=== PATIENT | male | born 1965 | race Caucasian/White ===

== ENCOUNTER 2017-02-28 16:01 | Inpatient (IN) | payer OTHER ==
--- NOTE | 2017-02-28 17:25 | EDPHY ---
H & P Stated Complaint: in addisons crisis/fever - Personal History Current Tetanus/Diphtheria Vaccine: Yes - Medical/Surgical History Hx Asthma: No Hx Chronic Respiratory Disease: No Hx Diabetes: No Hx Cardiac Disease: No Hx Renal Disease: No Hx Cirrhosis: No Hx Alcoholism: No Hx HIV/AIDS: No Hx Splenectomy or Spleen Trauma: No Other PMH: Addisons disease. 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 Yesterday he woke feeling worse, felt like he was experiencing as soon in crisis with symptoms including headache, fever, chills, coughing, abdominal pain, feeling overall not well. He was seen by his PCP today, had fever 103 F, plan was direct admission by his PCP however there were complications associated with this and he subsequently went home, did not feel better in came to the ER. Yesterday he self administered 4 mg of IM Decadron and felt improvement at that time. He currently states that he is feeling somewhat improved. Patient had negative influenza swab in his primary care's office this morning. He denies: Dyspnea, nausea vomiting, melena hematochezia, dysuria. PRIMARY CARE PROVIDER: Dr. Lupillo Agee REVIEW OF SYSTEMS: A ten point review of systems was performed and is negative with the exception of the items mentioned in the HPI PAST MEDICAL & SURGICAL HISTORY: Roque's disease SOCIAL HISTORY:Nonsmoker PHYSICAL EXAM (Prior to examination, patient consented to physical exam, hands were washed and my usual and customary physical exam procedures followed) 1) GENERAL: Well-developed, well-nourished, alert and oriented. Appears anxious. 2) HEAD: Normocephalic, atraumatic 3) HEENT: Pupils equal, round, reactive to light bilaterally. Sclera anicteric. Nasopharynx, oropharynx, clear, no lesions. Moist mucous membrane Ears bilaterally with normal tympanic membranes. 4) NECK: Full range of motion, no meningeal signs. No cervical adenopathy 5) LUNGS: Clear auscultation bilaterally, no wheezes, no rhonchi, no retractions. 6) HEART: Regular rate and rhythm, no murmur, no heave, no gallop. 7) ABDOMEN: No guarding, no rebound, no focal tenderness, negative McBurney's, negative Ramirez's, negative Rovsing's, negative peritoneal sign, unable to elicit any abdominal pain on exam 8) MUSCULOSKELETAL: Moving all extremities, no focal areas of tenderness, no obvious trauma. No peripheral edema or discoloration. 9) BACK: No CVA tenderness, no midline vertebral tenderness, no fluctuance, no step-off, no obvious trauma, no visual or palpable abnormality. 10) SKIN: No rash, no petechiae. 11) Psychiatric: Patient is oriented X 3, there is no agitation. DIFFERENTIAL DIAGNOSIS: In no particular include but limited to pneumonia, influenza, addisonian crisis (Martha,Kristopher Jessenia) Constitutional: Initial Vital Signs Temperature (C) 36.8 C 02/28/17 16:06 Heart Rate 88 02/28/17 16:06 Respiratory Rate 16 02/28/17 16:06 Blood Pressure 114/61 02/28/17 16:06 O2 Sat (%) 97 02/28/17 16:06 O2 Delivery Mode Room Air Allergies/Adverse Reactions: No Known Allergies Allergy (Verified 02/28/17 21:13) Home Medications: Medication Instructions Recorded AZITHROMYCIN [Z-PACK] 250 mg PO DAILY 02/28/17 Aspirin [Aspirin 325 mg (*)] 975 mg PO ONCE 02/28/17 Bupropion HCl [Bupropion HCl Sr] 150 mg PO BID 02/28/17 Cholecalciferol Vit D3 [Vitamin D3 4,000 units PO DAILY 02/28/17 (*)] Dexamethasone Sod Phosphate 4 mbq IM ONCE 02/28/17 [Dexamethasone Sodium Phosphate] Diazepam [Diazepam] 2 mg PO DAILY PRN 02/28/17 Fludrocortisone Acetate [Florinef] 0.1 mg PO DAILY 02/28/17 Herbals/Supplements -Info Only 1 ea PO DAILY 02/28/17 Hydrocortisone [Cortef 10 mg (*)] 10 mg PO DAILY@1300 02/28/17 Hydrocortisone [Cortef 10 mg (*)] 20 mg PO DAILY 02/28/17 Synthroid 88 mcg (*) 88 mcg PO DAILY 02/28/17 Medical Decision Making - Diagnostics Imaging Results: Imaging Impressions Chest X-Ray 02/28/17 17:22 Impression: Probable left lower lobe pneumonia. Recommend following to clear. ED Course/Re-evaluation: Patient was re-evaluated with serial examinations. Remains normotensive, maintain normal saturations. He is noted to have a left lower lobe pneumonia. Discussed case with secondary supervising physician Dr. Singh Lopez. Plan will be admission to hospitalist service, consultation Dr. Anastasiya Frausto at 7: 00 p.m. who will admit patient. (Kristopher Thomas) I did not see this patient while he was in the emergency department. However his care was discussed with the PA while the patient was in the department. I agree with treatment plan and management (Singh Lopez S) - Data Points Laboratory Results: Laboratory Results 02/28/17 16:40 02/28/17 16:40 02/28/17 02/28/17 02/28/17 17:40 17:28 16:40 WBC RBC Hgb Hct MCV MCH MCHC RDW Plt Count MPV Neut % (Auto) Lymph % (Auto) [place] % (Auto) Eos % (Auto) Baso % (Auto) Nucleat RBC Rel Count Absolute Neuts (auto) Absolute Lymphs (auto) Absolute Monos (auto) Absolute Eos (auto) Absolute Basos (auto) Absolute Nucleated RBC Immature Gran % Immature Gran # PT INR APTT VBG Lactic Acid 0.9 mmol/L mmol/L (0.7-2.1) Sodium 136 mEq/L mEq/L (135-145) Potassium 4.3 mEq/L mEq/L (3.5-5.2) Chloride 102 mEq/L mEq/L (97-110) Carbon Dioxide 22 mEq/l mEq/l (22-31) Anion Gap 12 mEq/L mEq/L (8-16) BUN 13 mg/dL mg/dL (7-23) Creatinine 1.2 mg/dL mg/dL (0.7-1.3) Estimated GFR > 60 Glucose 133 mg/dL H mg/dL (70-100) Calcium 8.6 mg/dL mg/dL (8.5-10.4) Total Bilirubin 0.3 mg/dL mg/dL (0.1-1.4) Conjugated Bilirubin 0.2 mg/dL mg/dL (0.0-0.5) Unconjugated Bilirubin 0.1 mg/dL mg/dL (0.0-1.1) AST 54 IU/L IU/L (17-59) ALT 57 IU/L IU/L (21-72) Alkaline Phosphatase 62 IU/L IU/L (38-126) Total Protein 6.0 g/dL L g/dL (6.3-8.2) Albumin 3.4 g/dL L g/dL (3.5-5.0) Lipase 112 IU/L IU/L (23-300) TSH 0.554 uIU/mL uIU/mL (0.465-4.680) Urine Color PALE YELLOW Urine Appearance CLEAR Urine pH 7.0 (5.0-7.5) Ur Specific [place] 1.004 (1.002-1.030) Urine Protein NEGATIVE (NEGATIVE) Urine Ketones NEGATIVE (NEGATIVE) Urine Blood NEGATIVE (NEGATIVE) Urine Nitrate NEGATIVE (NEGATIVE) Urine Bilirubin NEGATIVE (NEGATIVE) Urine Urobilinogen 2.0 EU H EU (0.2-1.0) Ur Leukocyte Esterase NEGATIVE (NEGATIVE) Urine RBC NONE SEEN /hpf /hpf (0-3) Urine WBC 1-3 /hpf /hpf (0-3) Ur Epithelial Cells NONE SEEN /lpf /lpf (NONE-1+) Urine Glucose NEGATIVE (NEGATIVE) 02/28/17 02/28/17 16:40 16:40 WBC 20.96 10^3/uL H 10^3/uL (3.80-9.50) RBC 4.02 10^6/uL L 10^6/uL (4.40-6.38) Hgb 13.3 g/dL L g/dL (13.7-17.5) Hct 36.9 % L % (40.0-51.0) MCV 91.8 fL fL (81.5-99.8) MCH 33.1 pg pg (27.9-34.1) MCHC 36.0 g/dL g/dL (32.4-36.7) RDW 12.4 % % (11.5-15.2) Plt Count 190 10^3/uL 10^3/uL (150-400) MPV 10.3 fL fL (8.7-11.7) Neut % (Auto) 87.1 % H % (39.3-74.2) Lymph % (Auto) 4.0 % L % (15.0-45.0) [place] % (Auto) 7.9 % % (4.5-13.0) Eos % (Auto) 0.0 % L % (0.6-7.6) Baso % (Auto) 0.1 % L % (0.3-1.7) Nucleat RBC Rel Count 0.0 % % (0.0-0.2) Absolute Neuts (auto) 18.26 10^3/uL H 10^3/uL (1.70-6.50) Absolute Lymphs (auto) 0.83 10^3/uL L 10^3/uL (1.00-3.00) Absolute Monos (auto) 1.66 10^3/uL H 10^3/uL (0.30-0.80) Absolute Eos (auto) 0.00 10^3/uL L 10^3/uL (0.03-0.40) Absolute Basos (auto) 0.02 10^3/uL 10^3/uL (0.02-0.10) Absolute Nucleated RBC 0.00 10^3/uL 10^3/uL (0-0.01) Immature Gran % 0.9 % % (0.0-1.1) Immature Gran # 0.19 10^3/uL H 10^3/uL (0.00-0.10) PT 14.2 SEC SEC (12.0-15.0) INR 1.08 (0.83-1.16) APTT 32.0 SEC SEC (23.0-38.0) VBG Lactic Acid Sodium Potassium Chloride Carbon Dioxide Anion Gap BUN Creatinine Estimated GFR Glucose Calcium Total Bilirubin Conjugated Bilirubin Unconjugated Bilirubin AST ALT Alkaline Phosphatase Total Protein Albumin Lipase TSH Urine Color Urine Appearance Urine pH Ur Specific [place] Urine Protein Urine Ketones Urine Blood Urine Nitrate Urine Bilirubin Urine Urobilinogen Ur Leukocyte Esterase Urine RBC Urine WBC Ur Epithelial Cells Urine Glucose Medications Given: Discontinued Medications Ceftriaxone Sodium/Dextrose (Rocephin 1 Gm (Premix)) 50 mls @ 100 mls/hr IV DAILY MAUREEN PRN Reason: Protocol Stop: 03/30/17 18:59 Last Admin: 02/28/17 19:15 Dose: 50 mls Azithromycin 500 mg/ Dextrose 255 mls @ 255 mls/hr IV EDNOW ONE PRN Reason: Protocol Stop: 02/28/17 20:29 Last Admin: 02/28/17 21:10 Dose: 255 mls Departure - Departure Disposition: [facility] Inpatient Acute Clinical Impression: Pneumonia Qualifiers: Pneumonia type: due to unspecified organism Laterality: left Lung location: lower lobe of lung Qualified Code(s): J18.1 - Lobar pneumonia, unspecified organism Condition: Fair
[2017-02-28 17:39] LABS: PLATELET COUNT 190 10^3/uL (150-400)
[2017-02-28 17:48] LABS: INR 1.08 (0.83-1.16); PROTIME(PATIENT) 14.2 SEC (12.0-15.0)
[2017-02-28] MEDS ORDERED: AZITHROMYCIN IV 500 MG in D5W 250 ML IV SCH (19:00)
[2017-02-28] MEDS ORDERED: AZITHROMYCIN IV 500 MG in D5W 250 ML IV ONE (19:30)
[2017-02-28] MEDS ORDERED: diphenhydrAMINE 25 MG CAP PO PRN (22:41)
[2017-02-28] MEDS ORDERED: ACETAMINOPHEN 325 MG TAB PO PRN (22:41)
[2017-02-28] MEDS ORDERED: ONDANSETRON 4 MG/2 ML VIAL IVP PRN (22:41)
[2017-02-28] MEDS ORDERED: HYDROCODONE/APAP 5/325 TAB PO PRN (22:41)
--- NOTE | 2017-02-28 23:28 | PDGENHP ---
History and Physical - Chief Complaint "I'm in adrenal crisis" fevers, cough - History of Present Illness Source - upon arrival to patient's bedside patient is reported to be very frustrated, using multiple expletives and refusing to discuss current symptoms or past medical history until he receives an IV dose of steroids. Psych review with the patient His normal laboratory data including electrolytes, vital signs but he declined to have any further discussion. Data is limited to review of EMR and case discussed briefly with accepting provider at shift change. HPI - 51-year-old gentleman with a history of Roque's disease, hypothyroidism also on bupropion and diazepam who presents emergency department today with complaints of feeling generally unwell with fevers cough muscle aching abdominal pain. Patient reports that he is only here in the hospital because he reports he is in adrenal crises. Patient takes 20 mg of hydrocortisone, 10 mg of hydrocortisone at 1:00 p.m., Florinef 0.1 mg daily and self-administered 4 mg IM Decadron in the evening yesterday. Patient reported some improvement in his symptoms. He has not had any vital sign instability or electrolyte disturbances upon evaluation in the emergency department. Patient did not receive any steroids in the emergency department, and again reiterates the only reason he is in the hospital is for addisonian crisis. Per EMR, patient developed URI symptoms approximately a week ago he was given outpatient therapy with a Z-Louie which she completed. Patient began to feel significantly worse for presented back this PCPs office and was recommended for admission, but direct admission was not possible and patient went home from PCP office instead of ED. Also per EMR, patient was noted to have a fever at PCP office up to 103 F. Today patient reports feeling worse and presented to the emergency department for further evaluation. In the ED, patient was without any hypoxia. Blood pressures were within normal range and stable. Patient without any SIRS or sepsis criteria. He did have a leukocytosis of 20,000 however patient did take dexamethasone day prior to arrival in the ED. History Information - Allergies/Home Medication List Allergies/Adverse Reactions: No Known Allergies Allergy (Verified 02/28/17 21:13) Home Medications: AZITHROMYCIN [Z-PACK] 250 mg PO DAILY 02/28/17 [Last Taken 02/27/17] Aspirin [Aspirin 325 mg (*)] 975 mg PO ONCE 02/28/17 [Last Taken 02/28/17] Bupropion HCl [Bupropion HCl Sr] 150 mg PO BID 02/28/17 [Last Taken 02/28/17] Cholecalciferol Vit D3 [Vitamin D3 (*)] 4,000 units PO DAILY 02/28/17 [Last Taken Unknown] Dexamethasone Sod Phosphate [Dexamethasone Sodium Phosphate] 4 mbq IM ONCE 02/28 [Last Taken 02/28/17] Diazepam [Diazepam] 2 mg PO DAILY PRN 02/28/17 [Last Taken 02/23/17] Fludrocortisone Acetate [Florinef] 0.1 mg PO DAILY 02/28/17 [Last Taken 0.2MG] Herbals/Supplements -Info Only 1 ea PO DAILY 02/28/17 [Last Taken Unknown] Hydrocortisone [Cortef 10 mg (*)] 10 mg PO DAILY@1300 02/28/17 [Last Taken 02/28] Hydrocortisone [Cortef 10 mg (*)] 20 mg PO DAILY 02/28/17 [Last Taken 02/28/17 100MG TODAY] Synthroid 88 mcg (*) 88 mcg PO DAILY 02/28/17 [Last Taken 02/28/17] I have personally reviewed and updated: family history (Unable to review S patient declined), medical history (Limited review to EMR), social history ( Unable to review patient declined), surgical history (Unable to review patient declined) - Past Medical History Additional medical history: [place]'s disease, hypothyroidism - Social History Smoking Status: Former smoker Review of Systems Review of Systems: Limited review of systems to what patient would voluntarily share. He refused to have a full interview per discussion Fevers, muscle ache, abdominal pain, headache. Physical Exam Physical Exam: Limited exam as patient refused further interaction until he received IV steroids Temp Pulse Resp BP Pulse Ox 36.9 C 78 17 125/74 H 96 02/28/17 22:58 02/28/17 22:58 02/28/17 22:58 02/28/17 22:58 02/28/17 22:58 Constitutional: no apparent distress, other (Adult male sitting up in bed awake on his phone. Patient is frustrated and demanding steroids) Eyes: No icteric sclera, No scleral injection Ears, Nose, Mouth, Throat: other (No nasal discharge) Respiratory: no respiratory distress Skin: other (Bronzed skin tone) Musculoskeletal: other (Patient moves his upper extremities while sitting up in bed. His legs are carotid) Neurologic: other (Grossly nonfocal no facial drooping) Psychiatric: thought process linear, anxious, agitated (Patient demanding IV steroids, uses multiple expletives), No poor insight, No poor judgement, No poor memory Lab Data & Imaging Review 02/28/17 16:40 02/28/17 16:40 WBC 20.96 10^3/uL (3.80-9.50) H 02/28/17 16:40 RBC 4.02 10^6/uL (4.40-6.38) L 02/28/17 16:40 Hgb 13.3 g/dL (13.7-17.5) L 02/28/17 16:40 Hct 36.9 % (40.0-51.0) L 02/28/17 16:40 MCV 91.8 fL (81.5-99.8) 02/28/17 16:40 MCH 33.1 pg (27.9-34.1) 02/28/17 16:40 MCHC 36.0 g/dL (32.4-36.7) 02/28/17 16:40 RDW 12.4 % (11.5-15.2) 02/28/17 16:40 Plt Count 190 10^3/uL (150-400) 02/28/17 16:40 MPV 10.3 fL (8.7-11.7) 02/28/17 16:40 Neut % (Auto) 87.1 % (39.3-74.2) H 02/28/17 16:40 Lymph % (Auto) 4.0 % (15.0-45.0) L 02/28/17 16:40 [place] % (Auto) 7.9 % (4.5-13.0) 02/28/17 16:40 Eos % (Auto) 0.0 % (0.6-7.6) L 02/28/17 16:40 Baso % (Auto) 0.1 % (0.3-1.7) L 02/28/17 16:40 Nucleat RBC Rel Count 0.0 % (0.0-0.2) 02/28/17 16:40 Absolute Neuts (auto) 18.26 10^3/uL (1.70-6.50) H 02/28/17 16:40 Absolute Lymphs (auto) 0.83 10^3/uL (1.00-3.00) L 02/28/17 16:40 Absolute Monos (auto) 1.66 10^3/uL (0.30-0.80) H 02/28/17 16:40 Absolute Eos (auto) 0.00 10^3/uL (0.03-0.40) L 02/28/17 16:40 Absolute Basos (auto) 0.02 10^3/uL (0.02-0.10) 02/28/17 16:40 Absolute Nucleated RBC 0.00 10^3/uL (0-0.01) 02/28/17 16:40 Immature Gran % 0.9 % (0.0-1.1) 02/28/17 16:40 Immature Gran # 0.19 10^3/uL (0.00-0.10) H 02/28/17 16:40 PT 14.2 SEC (12.0-15.0) 02/28/17 16:40 INR 1.08 (0.83-1.16) 02/28/17 16:40 APTT 32.0 SEC (23.0-38.0) 02/28/17 16:40 VBG Lactic Acid 0.9 mmol/L (0.7-2.1) 02/28/17 17:40 Sodium 136 mEq/L (135-145) 02/28/17 16:40 Potassium 4.3 mEq/L (3.5-5.2) 02/28/17 16:40 Chloride 102 mEq/L (97-110) 02/28/17 16:40 Carbon Dioxide 22 mEq/l (22-31) 02/28/17 16:40 Anion Gap 12 mEq/L (8-16) 02/28/17 16:40 BUN 13 mg/dL (7-23) 02/28/17 16:40 Creatinine 1.2 mg/dL (0.7-1.3) 02/28/17 16:40 Estimated GFR > 60 02/28/17 16:40 Glucose 133 mg/dL (70-100) H 02/28/17 16:40 Calcium 8.6 mg/dL (8.5-10.4) 02/28/17 16:40 Total Bilirubin 0.3 mg/dL (0.1-1.4) 02/28/17 16:40 Conjugated Bilirubin 0.2 mg/dL (0.0-0.5) 02/28/17 16:40 Unconjugated Bilirubin 0.1 mg/dL (0.0-1.1) 02/28/17 16:40 AST 54 IU/L (17-59) 02/28/17 16:40 ALT 57 IU/L (21-72) 02/28/17 16:40 Alkaline Phosphatase 62 IU/L (38-126) 02/28/17 16:40 Total Protein 6.0 g/dL (6.3-8.2) L 02/28/17 16:40 Albumin 3.4 g/dL (3.5-5.0) L 02/28/17 16:40 Lipase 112 IU/L (23-300) 02/28/17 16:40 TSH 0.554 uIU/mL (0.465-4.680) 02/28/17 16:40 Urine Color PALE YELLOW 02/28/17 17:28 Urine Appearance CLEAR 02/28/17 17:28 Urine pH 7.0 (5.0-7.5) 02/28/17 17:28 Ur Specific [place] 1.004 (1.002-1.030) 02/28/17 17:28 Urine Protein NEGATIVE (NEGATIVE) 02/28/17 17:28 Urine Ketones NEGATIVE (NEGATIVE) 02/28/17 17:28 Urine Blood NEGATIVE (NEGATIVE) 02/28/17 17:28 Urine Nitrate NEGATIVE (NEGATIVE) 02/28/17 17:28 Urine Bilirubin NEGATIVE (NEGATIVE) 02/28/17 17:28 Urine Urobilinogen 2.0 EU (0.2-1.0) H 02/28/17 17:28 Ur Leukocyte Esterase NEGATIVE (NEGATIVE) 02/28/17 17:28 Urine RBC NONE SEEN /hpf (0-3) 02/28/17 17:28 Urine WBC 1-3 /hpf (0-3) 02/28/17 17:28 Ur Epithelial Cells NONE SEEN /lpf (NONE-1+) 02/28/17 17:28 Urine Glucose NEGATIVE (NEGATIVE) 02/28/17 17:28 Assessment & Plan Assessment: 51-year-old male with history of [place]'s disease, hypothyroidism, anxiety presents with complaints of fever, abdominal pain, muscle aching, cough 1. LLL Pneumonia (Acute) - patient has received IV azithromycin and Rocephin in the emergency department. Will plan to continue at this time. Will need to the revisit with the patient once he has received steroids to further reassess his current symptoms. Patient did have a recent fever at PCPs office which could be related to Roque's versus persistent pneumonia. Blood cultures x2 have been ordered. Patient does not meet SIRS criteria qsofa score is 0. Given patient is chronic steroid 2. Leukocytosis - patient with elevated white count at this time. Possibly related to left lower lobe pneumonia versus recent administration of IM Decadron last evening. Patient also chronically on hydrocortisone 3. Roque's disease, patient with multiple complaints consistent with [place]' s crises which patient reports he has a history. - dexamethasone 4 mg ordered IV q.6 hours. 4. anemia - review of CBC from 02/02/2017 shows patient with a normal H&H at that time. Patient without evidence of acute bleeding. This could be related to patient's acute illness versus anemia of chronic disease. Will have patient follow up with his PCP. 5. hyperglycemia - s/p high dose steroid administration. monitor am BMP. 6. hypoalbuminemia - minimally below normal. likely related to acute illness. 7. hypothyroidism - continue patient's levothyroxine 8. anxiety - continue patient bupropion, meta diazepam. FEN - LR overnight. monitor electrolytes closely and replete if needed. diet as tolerated. PPX - SCDs. lovenox. COR - will further discuss at next avail revisit leave as FULL at this time. Dispo - Admit to inpatient status on med/surge floor for close monitoring blood cultures with chronic steroid therapy and patient complaints of sx c/w [place] crises. At this time patient's vital signs have been stable and electrolytes within normal limits. will monitor closely. Will try to revisit with patient at later time if patient permits.
[2017-03-01] MEDS: DEXAMETHASONE 4 MG/ML VIAL IVP SCH ×4 (00:39→18:19)
[2017-03-01] MEDS: LR 1,000 ML IV SCH ×2 (00:39→11:43)
[2017-03-01] MEDS ORDERED: clonazePAM 1 MG TAB PO SCH (01:30)
[2017-03-01 06:01] LABS: PLATELET COUNT 191 10^3/uL (150-400)
--- NOTE | 2017-03-01 06:21 | PDMN ---
Medical Necessity Medical necessity: Pt meets INPT criteria per MD and [facility] Systemic or Infectious Condition GRG (est. LOS >2 MN for eval/tx of LLL pneumonia requiring IVABx, [place]'s disease with complaints c/w Roque's crises requiring IV dexamethasone q6hr, IVF; with leukocytosis, anemia, hyperglycemia, hypoalbuminemia).
[2017-03-01] MEDS ORDERED: DIAZEPAM 2 MG TAB PO PRN (06:48)
[2017-03-01] MEDS ORDERED: SYNTHROID 88 MCG PO SCH (09:00)
[2017-03-01] MEDS: buPROPion SR 150 MG TAB PO SCH ×2 (09:42→21:48)
[2017-03-01] MEDS: ENOXAPARIN 40 MG/0.4 ML SYR SC SCH (09:43)
[2017-03-01] MEDS: CHOLECALCIFEROL VIT D3 1,000 UNITS TAB PO SCH (09:44)
--- NOTE | 2017-03-01 09:50 | ASMTCASEMG ---
Living Arrangements What is your living Answers: With Partner arrangement? Who do you live with? Type Of Residence What kind of residence do Answers: House you live in? Discharge Plan Comments Coordination Status Comments Notes: Patient is a 51yo single male with a hx of [place]'s Disease admitted for LLL Pneumonia, leukocytosis, [place]'s crisis, anemia, hyperglycemia, , hypothyroidism, and anxiety. No therapies have been ordered. Patient most likely will d/c independently. CM available for d/c needs. Date Signed: 03/01/2017 09:49 AM Electronically Signed By:Vidya Spencer LCSW
[2017-03-01] MEDS ORDERED: ASPIRIN 325 MG TAB PO SCH (10:30)
[2017-03-01] MEDS ORDERED: ASPIRIN 325 MG TAB PO PRN (10:31)
--- NOTE | 2017-03-01 11:01 | HOSPPROG ---
Hospitalist Progress Note Assessment/Plan: 51 yo M w aamir's here w LLL pneumonia, strep pneumo bacteremia CAP: continue abx pneumococcal bacteremia: meenakshi SEGURA to see blood cx repeat, prob tomorrow to ensure clearance picc line thereafter probably reasonable to increase ceftrriaxone to 2 q 24 proph: lmwh aamir's: on stress dose steroids I have decreased dex to 2 q 6 today decrease to 1 q 6 tomorrow then back to home dose steroids all provided hemodynamic stability he is quite fixated on this issue dispo: inpt Subjective: case d.w dr hidalgo. cxr w LLL infiltrate (interp by me) Objective: Vital Signs Temp Pulse Resp BP Pulse Ox 36.6 C 84 16 112/70 93 03/01/17 08:00 03/01/17 08:00 03/01/17 08:00 03/01/17 08:00 03/01/17 08:00 Laboratory Results 03/01/17 05:03 03/01/17 05:03 02/28/17 03/01/17 03/02/17 05:59 05:59 05:59 Intake Total 1700 Output Total 700 Balance 1000 PT 14.2 SEC (12.0-15.0) 02/28/17 16:40 INR 1.08 (0.83-1.16) 02/28/17 16:40 - Physical Exam Constitutional: no apparent distress, appears nourished, not in pain Eyes: PERRL, anicteric sclera Ears, Nose, Mouth, Throat: moist mucous membranes, hearing normal Cardiovascular: regular rate and rhythym, no murmur, rub, or gallop Respiratory: no respiratory distress, other (crackles LLL. good air movement, no wheeze) Gastrointestinal: normoactive bowel sounds, soft, non-tender abdomen Genitourinary: no bladder fullness, No gary in urethra Skin: warm, normal color Musculoskeletal: full muscle strength, no muscle tenderness Neurologic: AAOx3 Psychiatric: interacting appropriately, not anxious Lymph, Heme, Immunologic: no cervical LAD ICD10 Worksheet Patient Problems: Problems Problem Status Onset Pneumonia Acute
[2017-03-01] MEDS: clonazePAM 1 MG TAB PO SCH ×3 (11:43→21:46)
--- NOTE | 2017-03-01 15:02 | GCON ---
[f rep st] CONSULTATION DATE OF CONSULTATION: 03/01/2017 REFERRING PHYSICIAN: Alex Guillen MD REASON FOR CONSULTATION: Pneumococcal bacteremia with pneumonia. CHIEF COMPLAINT: Fevers and chills with cough and sputum production. HISTORY OF PRESENT ILLNESS: This is a 51-year-old male with a past medical history significant for Roque disease, Radha's, who was not feeling well, actually starting more than a week ago, about 10 days ago. He stated that he started to have increasing cough with sputum production, some muscle aches, and headaches. He went and saw his primary care doctor, Dr. Lupillo Agee on Tuesday, and he was given a Z-Louie, which he completed on this past Tuesday. He states that he did start to feel better later in the week, but then by Tuesday he was not feeling well again, and Tuesday and Tuesday, he started to have fevers and shaking chills with myalgias, coughing up sputum. Does not relate any increasing shortness of breath as such. He does have some mild shortness of breath. He came in to the hospital. A chest x-ray was done, which showed a mild left lower lobe pneumonia. Blood cultures were done, which showed both vials with pneumococcus. He was given a dose of ceftriaxone and azithromycin yesterday, and he was continued on ceftriaxone today. Today he feels better. He states that his breathing is comfortable. He has some mild, dry cough at this time, but not coughing up any phlegm. He was having some sinus pains yesterday, but those have all resolved as well. The myalgias have also resolved as well today. Infectious Disease is now consulted for further evaluation and opinion regarding the above. REVIEW OF SYSTEMS: GENERAL: Fevers and shaking chills for the past 48 hours. HEENT: Head: Headaches, particularly on the left side; that has resolved. Eyes: No change in vision. ENT: Mild sore throat. No difficulty swallowing. No ear pain or drainage. CARDIOVASCULAR: No chest pain or rapid heart beat. RESPIRATORY: As above. GI: Mild nausea. No vomiting, abdominal pain, or diarrhea. : No dysuria or hematuria. MUSCULOSKELETAL: Did have some muscle aches, particularly down the legs, but that has since resolved. No joint pains. No rashes or open wounds. Rest of 10-point review of systems essentially negative, except for above. PAST MEDICAL HISTORY: Significant for [place] disease, Radha's, PTSD, which he states was diagnosed in July. He states he follows with a psychiatrist in [facility]. PAST SURGICAL HISTORY: None. ALLERGIES: No known drug allergies. SOCIAL HISTORY: He is a former smoker. He quit 1 year ago. He drinks alcohol socially. He lives alone. He has a son who stays with him on the weekends and 1 weekday. His mom is at the bedside. He has no pets. He has not traveled outside of [place] or the country recently. FAMILY HISTORY: Significant for his mother having polymyalgia rheumatica. His father committed suicide. His father's brother committed suicide. PHYSICAL EXAMINATION: VITALS: Temperature current 37.7, pulse is 80, blood pressure 111/68, saturation 94% on room air. Respiratory rate is 16. GENERAL: Patient is resting in bed. No acute respiratory distress. Awake, alert, and oriented x3. HEENT: Head is normocephalic, atraumatic. Eyes: No conjunctival injection. No petechiae noted. Oropharynx is clear. There is no posterior erythema or thrush. CARDIOVASCULAR: S1, S2. Regular rate and rhythm. No murmurs appreciated. RESPIRATORY: Mild coarse breath sounds at left base. No wheezing appreciated. ABDOMEN: Positive bowel sounds in all quadrants. Soft, nontender, nondistended. No obvious organomegaly appreciated. EXTREMITIES: No lower extremity edema. MUSCULOSKELETAL: No obvious pain on palpation of the joints, or joint effusions. SKIN: No obvious rashes. LABORATORY DATA: White blood cell count is 18.0, down from 20.9, hemoglobin 13.0, platelets are 191, neutrophils 88%. Sodium 140, potassium 4.3, chloride 99, bicarb 28, BUN 11, creatinine is 1.0. LFTs, done yesterday, are within the normal range. Cortisol this a.m. was 2.9. Blood cultures x2 sets. Both sets positive for pneumococcus. Susceptibility profile is pending. Chest x-ray, done yesterday. Images reviewed by me. Show some mild left lower lobe infiltrate. ASSESSMENT: 1. Pneumococcal bacteremia with left lower lobe pneumonia. 2. Leukocytosis. 3. Roque disease. PLAN: At this point in time, patient is on ceftriaxone, which is reasonable, given the above. He is clinically better than yesterday, so we will continue with this regimen for right now. We will repeat blood cultures in a.m. Would recommend a followup CXR in 4 weeks to ensure that it is cleared. I would continue to follow the trend of his white blood cell count. This is likely multifactorial, given he has been taking stress doses of steroids also recently. Unclear if he had initially influenza last week, with now a secondary bacterial infection with pneumococcus. Care coordinated with the hospitalist team. Thank you very much for providing this opportunity to care for your patient in consultation. /[id number]/MODL MTDD
[2017-03-01] MEDS ORDERED: AZITHROMYCIN IV 250 MG in D5W 250 ML IV SCH (20:00)
[2017-03-01] MEDS ORDERED: DEXAMETHASONE 4 MG/ML VIAL IVP SCH (23:47)
[2017-03-02] MEDS: DEXAMETHASONE 4 MG/ML VIAL IVP SCH ×5 (00:02→23:41)
[2017-03-02] MEDS: LEVOTHYROXINE 88 MCG TAB PO SCH (05:35)
[2017-03-02] MEDS: LR 1,000 ML IV SCH (05:38)
[2017-03-02] MEDS ORDERED: Herbals/Supplements -Info Only PO SCH (09:00)
--- NOTE | 2017-03-02 09:16 | PCMIDPN ---
Assessment/Plan: Pneumococcal PNA complicated by bacteremia likely preceded by a viral syndrome. Generally improving. Patient is on room air, low-grade Temp overnight. Remarkably normal lung exam. Labs were not repeated. Chest x-ray personally reviewed by me which showed subtle left lower lobe posterior infiltrate --continue ceftriaxone --repeat blood cx today --hopeful DC tomorrow AM on levofloxacin, awaiting susceptibilities Medications ceftriaxone 1 g IV daily, # 2 Microbiology 02/28 blood cultures (03/18) pneumococcus Subjective: Patient reports feeling significantly improved, minimal coughing, no diarrhea Objective: Vital Signs Temp Pulse Resp BP Pulse Ox 36.3 C 75 16 122/72 H 93 03/01/17 21:17 03/01/17 21:17 03/01/17 21:17 03/01/17 21:17 03/01/17 21:17 Laboratory Results 03/01/17 05:03 03/01/17 05:03 03/01/17 03/02/17 03/03/17 05:59 05:59 05:59 Intake Total 1700 1000 Output Total 700 1400 Balance 1000 -400 - Physical Exam General Appearance: alert, no apparent distress, thin Respiratory: lungs clear, No accessory muscle use, No crackles Neck: supple Cardiac/Chest: regular rate, rhythm Extremities: No pedal edema Skin: No rash Neuro/Psych: alert, normal mood/affect, oriented x 3 - Time Spent With Patient Time Spent with Patient: greater than 35 minutes (Pathogenesis of pneumococcal bacteremia and pneumonia, risks and benefits of levofloxacin including interaction with calcium, zinc, magnesium, sun sensitivity, tendinopathy) Time Spent with Patient: Greater than 35 minutes spent on this patients care, greater than 50% of time spent counseling, educating, and coordinating care regarding the above mentioned plan. ICD10 Worksheet Patient Problems: Problems Problem Status Onset Pneumonia Acute
--- NOTE | 2017-03-02 09:51 | HOSPPROG ---
Hospitalist Progress Note Assessment/Plan: 51 yo M w aamir's here w LLL pneumonia, strep pneumo bacteremia CAP: continue abx pneumococcal bacteremia: meenakshi tran ID to see blood cx repeat, prob tomorrow to ensure clearance picc line thereafter probably reasonable to increase ceftrriaxone to 2 q 24 proph: lmwh aamir's: on stress dose steroids I have decreased dex to 2 q 6 today decrease to 0.5 q 6 tomorrow then back to home dose steroids all provided hemodynamic stability he is quite fixated on this issue dispo: inpt Subjective: case d/w dr michaels. hemodynamically stable Objective: Vital Signs Temp Pulse Resp BP Pulse Ox 36.3 C 75 16 122/72 H 93 03/01/17 21:17 03/01/17 21:17 03/01/17 21:17 03/01/17 21:17 03/01/17 21:17 Laboratory Results 03/01/17 05:03 03/01/17 05:03 03/01/17 03/02/17 03/03/17 05:59 05:59 05:59 Intake Total 1700 1000 Output Total 700 1400 Balance 1000 -400 PT 14.2 SEC (12.0-15.0) 02/28/17 16:40 INR 1.08 (0.83-1.16) 02/28/17 16:40 - Physical Exam Constitutional: no apparent distress, appears nourished Eyes: PERRL, anicteric sclera Ears, Nose, Mouth, Throat: moist mucous membranes, hearing normal Cardiovascular: regular rate and rhythym, no murmur, rub, or gallop Respiratory: no respiratory distress, no rales or rhonchi Gastrointestinal: normoactive bowel sounds, soft, non-tender abdomen Genitourinary: no bladder fullness, No gary in urethra Skin: warm, normal color Musculoskeletal: full muscle strength Neurologic: AAOx3 Psychiatric: interacting appropriately, not anxious Lymph, Heme, Immunologic: no cervical LAD ICD10 Worksheet Patient Problems: Problems Problem Status Onset Pneumonia Acute
[2017-03-02] MEDS: CHOLECALCIFEROL VIT D3 1,000 UNITS TAB PO SCH (10:04)
[2017-03-02] MEDS: buPROPion SR 150 MG TAB PO SCH ×2 (10:04→21:18)
[2017-03-02] MEDS: clonazePAM 1 MG TAB PO SCH ×3 (10:04→21:18)
[2017-03-02] MEDS: ENOXAPARIN 40 MG/0.4 ML SYR SC SCH (10:06)
[2017-03-02] MEDS ORDERED: BISACODYL 10 MG SUPP PR PRN (15:42)
[2017-03-02] MEDS ORDERED: MAGNESIUM HYDROXIDE 30 ML UDCUP PO PRN (15:42)
[2017-03-02] MEDS ORDERED: POLYETHYLENE GLYCOL 3350 17 GM PKT PO PRN (15:42)
[2017-03-02] MEDS ORDERED: LACTULOSE 20 GM/30 ML UDCUP PO PRN (15:42)
[2017-03-02] MEDS: SENNOSIDES/DOCUSATE SODIUM TAB PO SCH (21:18)
[2017-03-03] MEDS: DEXAMETHASONE 4 MG/ML VIAL IVP SCH ×2 (06:31→11:36)
[2017-03-03] MEDS: LEVOTHYROXINE 88 MCG TAB PO SCH (06:34)
[2017-03-03 07:39] VITALS: BP 122/81; PULSE 66; RESP 18; TEMP 97.8; O2SAT 93
[2017-03-03] MEDS: ENOXAPARIN 40 MG/0.4 ML SYR SC SCH (08:17)
[2017-03-03] MEDS: clonazePAM 1 MG TAB PO SCH (08:18)
[2017-03-03] MEDS: SENNOSIDES/DOCUSATE SODIUM TAB PO SCH (08:18)
[2017-03-03] MEDS: buPROPion SR 150 MG TAB PO SCH (08:18)
[2017-03-03] MEDS: CHOLECALCIFEROL VIT D3 1,000 UNITS TAB PO SCH (08:18)
--- NOTE | 2017-03-03 12:02 | PCMIDPN ---
Assessment/Plan: Pneumococcal PNA complicated by bacteremia likely preceded by a viral syndrome. Much improved, Nl O2 sat, Blood cx from yesterday negative --dc levo 750mg x 11 more days Medications ceftriaxone 1 g IV daily, #3 Microbiology 02/28 blood cultures (2/2) pneumococcus 03/02 blood cx (2) NGTD Subjective: patient feels like he is still having adrenal crisis Objective: Vital Signs Temp Pulse Resp BP Pulse Ox 36.6 C 66 18 122/81 H 93 03/03/17 07:39 03/03/17 07:39 03/03/17 07:39 03/03/17 07:39 03/03/17 07:39 Laboratory Results 03/01/17 05:03 03/01/17 05:03 03/02/17 03/03/17 03/04/17 05:59 05:59 05:59 Intake Total 1000 2190 Output Total 1400 Balance -400 2190 - Physical Exam General Appearance: alert, no apparent distress Respiratory: No accessory muscle use Skin: No rash Neuro/Psych: alert, normal mood/affect, oriented x 3 - Time Spent With Patient Time Spent with Patient: greater than 25 minutes (reviewing course of antibiotics, risk and benefits) Time Spent with Patient: Greater than 25 minutes spent on this patients care, greater than 50% of time spent counseling, educating, and coordinating care regarding the above mentioned plan. ICD10 Worksheet Patient Problems: Problems Problem Status Onset Pneumonia Acute
--- NOTE | 2017-03-03 13:01 | ASMTCMCOM ---
CM Note CM Note Notes: Spoke w/RN, pt will change to po antibiotics and dc independent. DC Plan: Home Independent Date Signed: 03/03/2017 01:00 PM Electronically Signed By:Rozina Obrien RN
--- NOTE | 2017-03-03 15:19 | ASDISCHSUM ---
Discharge Information Plan Status:Home with No Needs Medically Cleared to Leave: Discharge Date:03/03/2017 01:18 PM CM D/C Disposition:Home, Routine, Self-Care ADT D/C Disposition:Home, Routine, Self-Care Projected Discharge Date:03/03/2017 01:18 PM Transportation at D/C: Discharge Delay Reason: Follow-Up Date:03/03/2017 01:18 PM Discharge Slot: Final Diagnosis: Placement Information Patient Contact Information Contact Name:LOY Relationship:Other Address: Work Phone: City: [facility] Phone: State/Zip Code: Email: Financial Information Financial Class:HMO and PPO Plans Primary Plan Desc:[facility] [employer] Primary Plan Number:[id number] Secondary Plan Desc: Secondary Plan Number: Assessment Information [facility] Initial CM Assessment Living Arrangements What is your living Answers: With Partner arrangement? Who do you live with? Type Of Residence What kind of residence do Answers: House you live in? Discharge Plan Comments Coordination Status Comments Notes: Patient is a 51yo single male with a hx of Chase's Disease admitted for LLL Pneumonia, leukocytosis, Roque's crisis, anemia, hyperglycemia, , hypothyroidism, and anxiety. No therapies have been ordered. Patient most likely will d/c independently. CM available for d/c needs. Date Signed: 03/01/2017 09:49 AM Electronically Signed By:Vidya Spencer LCSW [facility] CM Progress Note CM Note CM Note Notes: Spoke w/RN, pt will change to po antibiotics and dc independent. DC Plan: Home Independent Date Signed: 03/03/2017 01:00 PM Electronically Signed By:Rozina Obrien RN Intervention Information
--- NOTE | 2017-03-03 23:19 | GDS ---
[f rep st] DISCHARGE SUMMARY DISCHARGE DIAGNOSES: 1. Pneumococcal bacteremia. 2. Community-acquired pneumonia. 3. History of [place] disease. CONSULTATIONS: Infectious Disease. STUDIES AND PROCEDURES DONE: Chest x-ray. PHYSICAL EXAMINATION: GENERAL: The patient is alert. VITAL SIGNS: Afebrile at 36.6, pulse is 66, respiratory rate is 18, blood pressure is 122/81. I have seen and evaluated the patient on the day o f discharge. HOSPITAL COURSE: The patient is a 51-year-old male, who presents to the emergency room with complain ts of shortness of breath. He was evaluated and diagnosed with: 1. Community-acquired pneumonia. During this hospitalization, he was treated with IV Rocephin. He has been transitioned to oral Levaquin, and will continue this in the outpatient setting. His condit ion is significantly improved. 2. Strep pneumoniae bacteremia. Repeat blood cultures have been negative. He has been followed by Infectious Disease. He will continue with Levaquin in the outpatient setting and not require any fur ther IV antibiotic therapy. 3. History of Roque disease. The patient has been stress dosed during this hospitalization with s teroids. He will continue Decadron in the outpatient setting. I have recommended to him that he tit rate this after his disposition. He is in agreement with this plan, however, feels strongly that he still needs a significant amount of steroid. He will be discharged on Decadron. He has an appointme nt with his office machine servicer on 03/07/2017, at which time he will develop a continued plan in the outp atient setting. I have seen and evaluated the patient with Dr. Vania Yin and reviewed his disposit ion with her. PENDING STUDIES: There are no pending studies. FOLLOWUP: Followup again will be with his office machine servicer, as well as his primary care physician. DISCHARGE MEDICATIONS: He has been provided a prescription for Levaquin 750 mg #5, as well as Decadr on 4 mg and Klonopin 1 mg #6. I spent greater than 35 minutes in the care, coordination, and management of this patient's dispositi on. /[id number]/MODL
== END 2017-03-03 13:18 | disposition home or self-care (01) | DRG 195 ==
LOC: OBSVTOIN 19:02 → F3E 20:55
PROVIDERS: ADMIT Hospitalist; ATTEND Hospitalist
DX: J13 Pneumonia due to Streptococcus pneumoniae (principal); E03.9 Hypothyroidism, unspecified; D51.0 Vitamin B12 deficiency anemia due to intrinsic factor deficiency; Z87.891 Personal history of nicotine dependence
CPT/HCPCS: 96374; J0456; J0696; J1100; J1650

== ENCOUNTER → 2017-03-13 | Outpatient (CLI) | payer OTHER | LOC: FIMAGING 12:21 | PROVIDERS: ATTEND Family Medicine | DX: J98.4 Other disorders of lung (principal) ==

== ENCOUNTER → 2017-04-12 | Outpatient (CLI) | payer OTHER ==
[~2017-04-12] MED LIST: GADOBUTROL 10 ML VIAL IVP ONE
== END ==
LOC: FIMAGING 18:33
PROVIDERS: ATTEND Psychiatry & Neurology Neurology
DX: R20.0 Anesthesia of skin (principal); R51 Headache; H53.2 Diplopia; J39.2 Other diseases of pharynx
CPT/HCPCS: A9585

== ENCOUNTER → 2017-04-14 | Outpatient (CLI) | payer OTHER ==
--- NOTE | 2017-04-18 11:49 | CPEEG ---
[f rep st] ELECTROENCEPHALOGRAM DATE OF STUDY: 04/14/2017 DATE OF INTERPRETATION: 04/18/2017 DATE OF STUDY: 04/14/2017 INTERPRETATION: Normal EEG during wakefulness and sleep. There were no potentially epileptogenic abnormalities present during the recording. REPORT: This EEG contains 10-11 Hz alpha activity to the posterior head regions. There was no abnormal activation at rest, during photic stimulation or hyperventilation. The patient became drowsy and fell asleep during the study. During drowsiness, the patient had the nonspecific activation of bitemporal wicket waves. These are of no clinical significance. There was no abnormal activation during drowsiness, sleep, or during times of arousal. /[id number]/MODL MTDD
== END ==
LOC: FCPNEURO 14:55
PROVIDERS: ATTEND Psychiatry & Neurology Neurology
DX: R20.0 Anesthesia of skin (principal); R51 Headache; H53.2 Diplopia

== ENCOUNTER → 2017-05-11 | Outpatient (CLI) | payer OTHER | LOC: BMCIMAGING 09:39 | PROVIDERS: ATTEND Internal Medicine Endocrinology, Diabetes & Metabolism | DX: Z13.820 Encounter for screening for osteoporosis (principal); M85.89 Other specified disorders of bone density and structure, multiple sites; E27.1 Primary adrenocortical insufficiency; E07.9 Disorder of thyroid, unspecified ==

== ENCOUNTER → 2017-05-17 | Outpatient (CLI) | payer OTHER ==
[~2017-05-17] MED LIST changes: -GADOBUTROL 10 ML VIAL IVP ONE; +LIDOCAINE 1% 300 MG/30 ML SDV ONE
[2017-05-17 09:11] LABS: INR 0.96 (0.83-1.16)
== END ==
LOC: FIMAGING 08:16
PROVIDERS: ATTEND Psychiatry & Neurology Neurology
PROC: 009U4ZX Drainage of Spinal Canal, Percutaneous Endoscopic Approach, Diagnostic (ICD-10-PCS; principal; 2017-05-17)
DX: R51 Headache (principal)
CPT/HCPCS: 85060-90; 87496-90; 87798-90; 88184-90; 88185-91

== ENCOUNTER → 2017-06-13 | Outpatient (CLI) | payer OTHER ==
[~2017-06-13] MED LIST changes: +GADOBUTROL 10 ML VIAL IVP ONE; +IOPAMIDOL (ISOVUE 370) 100 ML BTL IV ONE; -LIDOCAINE 1% 300 MG/30 ML SDV ONE
== END ==
LOC: FIMAGING 06:49
PROVIDERS: ATTEND Psychiatry & Neurology Neurology
DX: M51.24 Other intervertebral disc displacement, thoracic region (principal); R07.9 Chest pain, unspecified; G62.9 Polyneuropathy, unspecified; Q89.1 Congenital malformations of adrenal gland
CPT/HCPCS: A9585; Q9967

== ENCOUNTER → 2017-07-26 | Outpatient (CLI) | payer OTHER | LOC: BMCIMAGING 09:34 | PROVIDERS: ATTEND Internal Medicine Rheumatology | DX: M51.36 Other intervertebral disc degeneration, lumbar region (principal) ==

== ENCOUNTER → 2017-07-27 | Outpatient (CLI) | payer OTHER ==
[~2017-07-27] MED LIST changes: -IOPAMIDOL (ISOVUE 370) 100 ML BTL IV ONE
== END ==
LOC: FIMAGING 12:03
PROVIDERS: ATTEND Psychiatry & Neurology Neurology
DX: H53.2 Diplopia (principal); M51.36 Other intervertebral disc degeneration, lumbar region
CPT/HCPCS: A9585

== ENCOUNTER → 2017-11-18 | Outpatient (CLI) | payer OTHER | LOC: FIMAGING 18:16 | PROVIDERS: ATTEND Family Medicine | DX: M48.061 Spinal stenosis, lumbar region without neurogenic claudication (principal); M53.86 Other specified dorsopathies, lumbar region; M51.86 Other intervertebral disc disorders, lumbar region ==